=== PATIENT | female | born 1995 | race Caucasian/White ===

== ENCOUNTER 2016-11-23 02:16 | Emergency (ER) | payer OTHER ==
[~2016-11-23] VITALS: Ht 160 cm; Wt 60.0 kg
[2016-11-23 02:17] VITALS: O2SAT 100
[2016-11-23 02:33] VITALS: O2SAT 100
[2016-11-23 02:40] LABS: I-STAT SODIUM 145 MMOL/L (138-146)
[2016-11-23 02:41] LABS: I-STAT POTASSIUM 3.4 MMOL/L (3.5-4.9)
[2016-11-23 02:44] LABS: AUTOMATED NEUTROPHIL # 11.3 TH/MM3 (1.8-7.7); BASOPHIL % 0.2 % (0.0-2.0); EOSINOPHIL # 0.1 TH/MM3 (0-0.4); EOSINOPHIL % 0.3 % (0.0-4.0); HEMATOCRIT 30.1 % (35.0-46.0); HEMO FLAGS DIFF FINAL; LYMPH % 29.8 % (9.0-44.0); LYMPHOCYTE # 5.1 TH/MM3 (1.0-4.8); MEAN CELL VOLUME 92.7 FL (80.0-100.0); MEAN CORPUSCULAR HEMOGLOBIN 29.9 PG (27.0-34.0); MEAN CORPUSCULAR HGB CONC 32.3 % (32.0-36.0); MONO % 3.1 % (0.0-8.0); NEUT % 66.6 % (16.0-70.0); PLATELET COUNT 175 TH/MM3 (150-450); RED BLOOD COUNT 3.24 MIL/MM3 (4.00-5.30)
[2016-11-23] MEDS ORDERED: ceFAZolin 2 GM PREMIX 50 ML ONE (02:47)
[2016-11-23] MEDS ORDERED: DIPHTH/TETANUS/ACEL PERTUSSIS (BOOSTER) 0.5 ML VIAL/PFS IM ONE (02:47)
[2016-11-23] MEDS ORDERED: IOHEXOL 350 MG/ML 10 ML VIAL (for RAD DIAG) IV ONE (02:50)
[2016-11-23 02:55] VITALS: O2SAT 100
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
[2016-11-23 03:02] LABS: APTT (PATIENT) 26.4 SEC (24.3-30.1); INTERNATIONAL NORMALIZED RATIO 1.2 RATIO; PROTHROMBIN TIME - PATIENT 13.1 SEC (9.8-11.6)
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
[2016-11-23 03:10] LABS: BETA HCG QUANT LESS THAN 1 MIU/ML (0-5)
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
[2016-11-23 03:28] VITALS: BP 116/63; PULSE 106; RESP 24; TEMP 97.3; O2SAT 100
[2016-11-23 03:31] VITALS: BP 102/51; PULSE 119; RESP 24; O2SAT 100
[2016-11-23 03:50] VITALS: O2SAT 100
[2016-11-23 03:50] LABS: BLOOD GAS BASE EXCESS -11.5 mmol/L (-2-2); BLOOD GAS CARBOXYHEMOGLOBIN 0.9 % (0-4); BLOOD GAS HCO3 15 mmol/L (22-26); BLOOD GAS METHEMOGLOBIN 0.6 % (0-2); BLOOD GAS O2 HGB SATURATION 98 % (90-100); BLOOD GAS OXYGEN CONTENT 18.9 Vol % (12.0-20.0); BLOOD GAS PCO2 39 mmHg (38-42); BLOOD GAS PO2 474 mmHG (61-120); BLOOD GAS TOTAL HGB 12.8 G/DL (12.0-16.0); CRITICAL VALUE YES; OXYGEN DEVICE VENTILATOR; TEMP CORR TO 98.6
[2016-11-23 03:51] LABS: DRAW SITE RT FEMORAL; FIO2 100 %; NUMBER OF ARTERIAL PUNCTURES 1; STAT YES
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
[2016-11-23 04:11] LABS: HEMATOCRIT 39.5 % (35.0-46.0); REVIEW FLAG FINAL
[2016-11-23] MEDS ORDERED: MIDAZOLAM HCL 2 MG/2 ML VIAL IV PUSH ONE ×2 (05:00→05:30)
[2016-11-23] MEDS ORDERED: MIDAZOLAM HCL 5 MG/ML VIAL (1 ML) ONE (05:03)
[2016-11-23] MEDS ORDERED: ROCURONIUM INJ 50 MG/5 ML VIAL ONE (05:10)
[2016-11-23] MEDS ORDERED: NOREPINEPHRINE 4 MG/4 ML AMP ONE (05:11)
[2016-11-23] MEDS ORDERED: NOREPINEPHRINE-DEXTROSE DRIP 250 ML IV SCH (05:15)
[2016-11-23] MEDS ORDERED: ROCURONIUM INJ 50 MG/5 ML VIAL IV ONE (05:15)
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
== END 2016-11-23 06:01 | disposition short-term general hospital (02) ==
LOC: NEPI 02:16 → EDBD 02:16 → NEPE 06:01
DX: S06.6X9A Traumatic subarachnoid hemorrhage with loss of consciousness of unspecified duration, initial encounter (principal); S02.118B Other fracture of occiput, unspecified side, initial encounter for open fracture; S02.401B Maxillary fracture, unspecified side, initial encounter for open fracture; S02.611A Fracture of condylar process of right mandible, initial encounter for closed fracture; S02.2XXB Fracture of nasal bones, initial encounter for open fracture; S02.81XB Fracture of other specified skull and facial bones, right side, initial encounter for open fracture; S02.19XB Other fracture of base of skull, initial encounter for open fracture; S27.321A Contusion of lung, unilateral, initial encounter; S27.0XXA Traumatic pneumothorax, initial encounter; S22.42XA Multiple fractures of ribs, left side, initial encounter for closed fracture; S42.102A Fracture of unspecified part of scapula, left shoulder, initial encounter for closed fracture; S36.113A Laceration of liver, unspecified degree, initial encounter; S36.039A Unspecified laceration of spleen, initial encounter; R40.2432 Glasgow coma scale score 3-8, at arrival to emergency department; I77.73 Dissection of renal artery; I95.9 Hypotension, unspecified; V03.90XA Pedestrian on foot injured in collision with car, pick-up truck or van, unspecified whether traffic or nontraffic accident, initial encounter
CPT/HCPCS: 32551; 36430; 36600; 51702; 70450; 70486; 71010; 71260; 72125; 72128; 72131; 72170; 74177; 80307; 82435; 82565; 82805; 82947; 84132; 84295; 84520; 84702; 85014; 85018; 85025; 85610; 85730; 86850; 86900; 86901; 86920; 90471; 90715; 96374; 99291; A0431; A0436; J0690; J2250; P9016; Q9967; G0390